=== PATIENT | male | born 1975 | race Caucasian/White ===

== ENCOUNTER 2018-07-04 04:12 | Emergency (ER) | payer MEDICAID ==
[~2018-07-04] VITALS: Ht 182.9 cm; Wt 85.0 kg
[2018-07-04] MEDS ORDERED: DEXAMETHASONE 4 MG/ML, 1ML PO ONE (05:00)
[2018-07-04] MEDS ORDERED: DEXAMETHASONE 4 MG/ML, 1ML ONE (05:17)
[2018-07-04 05:39] VITALS: BP 130/87
== END 2018-07-04 05:41 | disposition home or self-care (01) ==
LOC: ED 05:28
DX: B34.9 Viral infection, unspecified (principal)
CPT/HCPCS: 71046; 99283; J1100

== ENCOUNTER 2019-10-24 11:53 | Emergency (ER) | payer MEDICAID ==
[~2019-10-24] VITALS: Ht 182.9 cm; Wt 83.3 kg
[2019-10-24] MEDS ORDERED: ALBUTEROL/IPRATROPIUM 2.5MG/0.5MG, 3 ML NPPB ONE (12:30)
[2019-10-24] MEDS ORDERED: ALBUTEROL/IPRATROPIUM 2.5MG/0.5MG, 3 ML ONE (12:33)
[2019-10-24 13:00] VITALS: BP 141/102
== END 2019-10-24 13:43 | disposition home or self-care (01) ==
LOC: ED 12:59
DX: J06.9 Acute upper respiratory infection, unspecified (principal); R00.0 Tachycardia, unspecified
CPT/HCPCS: 71045; 94640; 99283; J7512